=== PATIENT | female | born 1985 | race Caucasian/White ===

== ENCOUNTER 2017-10-27 17:58 | Emergency (ER) | payer MEDICARE, MEDICAID ==
[~2017-10-27] VITALS: Ht 142.2 cm; Wt 90.0 kg
[2017-10-27] MEDS ORDERED: FLUO40CA2 PO (18:30)
[2017-10-27] MEDS ORDERED: LEVO50TA5 PO (18:30)
[2017-10-27] MEDS ORDERED: PLEASE ENTER HEIGHT AND WEIGHT MC SCH (18:30)
[2017-10-27] MEDS ORDERED: LIDOCAINE 1%, 20ML INFIL ONE (18:30)
[2017-10-27] MEDS ORDERED: SODIUM CHLORIDE FLUSH 10ML SYR IVF ONE (18:30)
[2017-10-27] MEDS ORDERED: DIVA-68 PO (18:31)
[2017-10-27] MEDS ORDERED: BUPR150T20 PO (18:31)
[2017-10-27] MEDS ORDERED: TOPI200T6 PO (18:32)
[2017-10-27] MEDS ORDERED: ACET500T63 PO (18:32)
[2017-10-27 18:45] LABS: BASOPHILS # (AUTO) 0.04 x10^3/uL (0-0.1); BASOPHILS % (AUTO) 1 % (0-1); EOSINOPHILS # (AUTO) 0.05 x10^3/uL (0-0.4); EOSINOPHILS % (AUTO) 1 % (1-7); LYMPHOCYTES # (AUTO) 2.49 x10^3/uL (1-3.4); LYMPHOCYTES % (AUTO) 42 % (22-44); MD NO; MEAN CORPUSCULAR HEMOGLOBIN 33.7 pg (27.0-34.8); MEAN CORPUSCULAR HGB CONC 33.1 g/dL (32.4-35.8); MEAN PLATELET VOLUME 7.4 fL (7.4-10.4); MONOCYTES # (AUTO) 0.45 x10^3/uL (0.2-0.8); MONOCYTES % (AUTO) 8 % (2-9); NEUTROPHILS # (AUTO) 2.93 x10^3/uL (1.8-6.8); NEUTROPHILS % (AUTO) 49 % (42-75); PLATELET COUNT 372 x10^3/uL (130-400); RED BLOOD COUNT 3.85 x10^6/uL (3.82-5.3); RED CELL DISTRIBUTION WIDTH 18.5 % (9.6-15.2)
[2017-10-27 18:59] LABS: ALBUMIN 2.8 g/dL (3.4-5.0); ANION GAP 5 mmol/L (5-15); CALCIUM 8.5 mg/dL (8.5-10.1); CHLORIDE 108 mmol/L (98-107); CREATININE 0.95 mg/dL (0.55-1.02)
[2017-10-27] MEDS ORDERED: LIDOCAINE 1%, 10ML ONE (19:34)
[2017-10-27 22:05] VITALS: BP 114/67
== END 2017-10-27 22:07 | disposition home or self-care (01) ==
LOC: ED 18:49
DX: S06.0X0A Concussion without loss of consciousness, initial encounter (principal); S02.81XA Fracture of other specified skull and facial bones, right side, initial encounter for closed fracture; S02.2XXA Fracture of nasal bones, initial encounter for closed fracture; S01.511A Laceration without foreign body of lip, initial encounter; R56.9 Unspecified convulsions; E03.9 Hypothyroidism, unspecified; W10.9XXA Fall (on) (from) unspecified stairs and steps, initial encounter; Y93.89 Activity, other specified; Y92.098 Other place in other non-institutional residence as the place of occurrence of the external cause; Y99.8 Other external cause status
CPT/HCPCS: 13132; 36415; 70450; 70486; 72072; 72110; 72125; 80048; 82040; 84703; 85025; 99285

== ENCOUNTER 2018-04-20 18:49 | Emergency (ER) | payer MEDICARE, MEDICAID ==
[~2018-04-20] VITALS: Ht 147.3 cm; Wt 126.7 kg
[~2018-04-20 18:49] MED LIST: ACET500T63 PO; BUPR150T20 PO; DIVA-68 PO; FLUO40CA2 PO; LEVO50TA5 PO; TOPI200T6 PO
[2018-04-20 18:51] VITALS: BP 125/87
== END 2018-04-20 19:59 | disposition home or self-care (01) ==
LOC: ED 19:00
DX: S20.219A Contusion of unspecified front wall of thorax, initial encounter (principal); E03.9 Hypothyroidism, unspecified; Z79.899 Other long term (current) drug therapy; X58.XXXA Exposure to other specified factors, initial encounter; Y93.89 Activity, other specified; Y99.8 Other external cause status; Y92.89 Other specified places as the place of occurrence of the external cause
CPT/HCPCS: 71046; 99284

== ENCOUNTER 2018-10-30 13:54 | Inpatient (IN) | payer MEDICARE, MEDICAID ==
[~2018-10-30] VITALS: Ht 152.4 cm; Wt 131.6 kg
[~2018-10-30 13:54] MED LIST changes: +DIVA-61 PO; -DIVA-68 PO
[2018-10-30 15:21] LABS: BASOPHILS # (AUTO) 0.08 x10^3/uL (0-0.1); BASOPHILS % (AUTO) 1 % (0-1); EOSINOPHILS # (AUTO) 0.07 x10^3/uL (0-0.4); EOSINOPHILS % (AUTO) 1 % (1-7); LYMPHOCYTES % (AUTO) 26 % (22-44); MD NO; MEAN CORPUSCULAR HEMOGLOBIN 33.4 pg (27.0-34.8); MEAN CORPUSCULAR HGB CONC 32.7 g/dL (32.4-35.8); MEAN CORPUSCULAR VOLUME 101.9 fL (80-100); MEAN PLATELET VOLUME 7.7 fL (7.4-10.4); MONOCYTES # (AUTO) 0.59 x10^3/uL (0.2-0.8); MONOCYTES % (AUTO) 10 % (2-9); NEUTROPHILS # (AUTO) 3.57 x10^3/uL (1.8-6.8); NEUTROPHILS % (AUTO) 62 % (42-75); PLATELET COUNT 299 x10^3/uL (130-400); RED CELL DISTRIBUTION WIDTH 18.7 % (9.6-15.2)
[2018-10-30 15:28] LABS: ALBUMIN 2.7 g/dL (3.4-5.0); ANION GAP 8 mmol/L (5-15); CALCIUM 8.1 mg/dL (8.5-10.1); CHLORIDE 100 mmol/L (98-107)
[2018-10-30 15:31] LABS: ALANINE AMINOTRANSFERASE 17 U/L (12-78); ALKALINE PHOSPHATASE 57 U/L (45-117); BILIRUBIN,TOTAL 0.6 mg/dL (0.2-1.0); CREATININE 0.96 mg/dL (0.55-1.02); TOTAL PROTEIN 7.5 g/dL (6.4-8.2)
--- NOTE | 2018-10-30 15:39 | NUR ---
TO ROOM FROM LOBBY. NAD.
--- NOTE | 2018-10-30 16:06 | NUR ---
UA sent to marcella,. VICTOR MANUEL Valiente at bedside.
[2018-10-30 16:21] LABS: MICROSCOPIC AUTO
[2018-10-30 16:29] LABS: CULTURE INDICATED? YES
[2018-10-30] MEDS ORDERED: AZITHROMYCIN 500 MG in SODIUM CHLORIDE 0.9% 250 ML IV SCH (16:30)
[2018-10-30] MEDS ORDERED: SODIUM CHLORIDE FLUSH 10ML SYR IVF ONE (16:30)
[2018-10-30] MEDS ORDERED: CEFTRIAXONE PMX 1GM/50ML 50 ML IVPB ONE (16:30)
[2018-10-30 16:33] LABS: TROPONIN I < 0.015 ng/mL (0.000-0.045)
[2018-10-30] MEDS ORDERED: CEFTRIAXONE PMX 1GM/50ML 50 ML ONE (16:43)
--- NOTE | 2018-10-30 17:12 | NUR ---
Zithromax rashid. VSS. No other needs.
--- NOTE | 2018-10-30 17:23 | NUR ---
Report to FLOYD Vargas.
[2018-10-30] MEDS ORDERED: ONDANSETRON ODT 4 MG PO PRN (17:30)
[2018-10-30] MEDS ORDERED: GUAIFENESIN/DM 200-20MG, 10ML UDC PO PRN (17:30)
[2018-10-30] MEDS ORDERED: ACETAMINOPHEN 325 MG TABLET PO PRN (17:30)
[2018-10-30] MEDS ORDERED: ONDANSETRON 2MG/ML, 2ML IVPush PRN (17:30)
[2018-10-30 18:08] VITALS: BP 112/76
[2018-10-30 20:00] VITALS: BP 126/67
[2018-10-30] MEDS: TOPIRAMATE 100 MG TABLET PO SCH (20:03)
[2018-10-30] MEDS: BUPROPION SR 150 MG TABLET PO SCH (20:03)
[2018-10-30] MEDS: ENOXAPARIN 40 MG/0.4 ML SQ SCH (20:03)
[2018-10-30] MEDS: DIVALPROEX 500 MG TABLET.DR PO SCH (20:03)
[2018-10-30] MEDS: RISPERIDONE 1 MG TABLET PO SCH (20:04)
[2018-10-30] MEDS ORDERED: TEMAZEPAM 15 MG CAPSULE PO PRN (21:00)
[2018-10-31 02:00] VITALS: BP 101/68
[2018-10-31 05:03] LABS: BASOPHILS # (AUTO) 0.07 x10^3/uL (0-0.1); BASOPHILS % (AUTO) 1 % (0-1); EOSINOPHILS # (AUTO) 0.08 x10^3/uL (0-0.4); EOSINOPHILS % (AUTO) 2 % (1-7); LYMPHOCYTES # (AUTO) 1.53 x10^3/uL (1-3.4); LYMPHOCYTES % (AUTO) 29 % (22-44); MD NO; MEAN CORPUSCULAR HEMOGLOBIN 34.6 pg (27.0-34.8); MEAN CORPUSCULAR VOLUME 101.7 fL (80-100); MEAN PLATELET VOLUME 7.3 fL (7.4-10.4); MONOCYTES # (AUTO) 0.81 x10^3/uL (0.2-0.8); MONOCYTES % (AUTO) 15 % (2-9); NEUTROPHILS # (AUTO) 2.87 x10^3/uL (1.8-6.8); NEUTROPHILS % (AUTO) 54 % (42-75); PLATELET COUNT 268 x10^3/uL (130-400); RED BLOOD COUNT 3.74 x10^6/uL (3.82-5.3)
[2018-10-31 05:17] LABS: ALBUMIN 2.6 g/dL (3.4-5.0); ANION GAP 5 mmol/L (5-15); CALCIUM 8.5 mg/dL (8.5-10.1); CHLORIDE 104 mmol/L (98-107)
[2018-10-31 05:21] LABS: ALANINE AMINOTRANSFERASE 15 U/L (12-78); ALKALINE PHOSPHATASE 62 U/L (45-117); BILIRUBIN,TOTAL 0.2 mg/dL (0.2-1.0); CREATININE 0.97 mg/dL (0.55-1.02); TOTAL PROTEIN 7.4 g/dL (6.4-8.2)
[2018-10-31] MEDS: LEVOTHYROXINE 50 MCG TABLET PO SCH (05:35)
[2018-10-31 07:15] VITALS: BP 122/76
[2018-10-31] MEDS: TOPIRAMATE 100 MG TABLET PO SCH ×2 (08:49→20:37)
[2018-10-31] MEDS: FLUOXETINE HCL 20 MG CAPSULE PO SCH (08:49)
[2018-10-31] MEDS: DIVALPROEX 500 MG TABLET.DR PO SCH ×2 (08:49→20:37)
[2018-10-31] MEDS: BUPROPION SR 150 MG TABLET PO SCH ×2 (08:50→20:37)
[2018-10-31] MEDS: AZITHROMYCIN 500 MG TABLET PO SCH (08:50)
[2018-10-31 12:08] VITALS: BP 98/55
[2018-10-31] MEDS: CEFTRIAXONE PMX 2GM/50ML 50 ML IV SCH (17:26)
[2018-10-31 20:00] VITALS: BP 135/66
[2018-10-31] MEDS: ENOXAPARIN 40 MG/0.4 ML SQ SCH (20:37)
[2018-10-31] MEDS: RISPERIDONE 1 MG TABLET PO SCH (20:37)
[2018-10-31 20:40] VITALS: BP 126/84
[2018-11-01 01:49] VITALS: BP 126/82
[2018-11-01] MEDS: LEVOTHYROXINE 50 MCG TABLET PO SCH (05:35)
[2018-11-01 06:36] VITALS: BP 101/60
[2018-11-01] MEDS: AZITHROMYCIN 500 MG TABLET PO SCH (08:43)
[2018-11-01] MEDS: FLUOXETINE HCL 20 MG CAPSULE PO SCH (08:43)
[2018-11-01] MEDS: BUPROPION SR 150 MG TABLET PO SCH ×2 (08:43→20:06)
[2018-11-01] MEDS: DIVALPROEX 500 MG TABLET.DR PO SCH ×2 (08:43→20:07)
[2018-11-01] MEDS: TOPIRAMATE 100 MG TABLET PO SCH ×2 (08:43→20:06)
[2018-11-01 12:43] VITALS: BP 110/73
[2018-11-01] MEDS ORDERED: OMNIPAQUE 350 MG/ML, 100ML BOTTLE ONE (18:01)
[2018-11-01] MEDS: CEFTRIAXONE PMX 2GM/50ML 50 ML IV SCH (18:05)
[2018-11-01 20:00] VITALS: BP 101/68
[2018-11-01] MEDS: RISPERIDONE 1 MG TABLET PO SCH (20:06)
[2018-11-01] MEDS: ENOXAPARIN 40 MG/0.4 ML SQ SCH (20:07)
[2018-11-02 02:00] VITALS: BP 105/69
[2018-11-02 05:38] LABS: BASOPHILS % (AUTO) 2 % (0-1); EOSINOPHILS # (AUTO) 0.18 x10^3/uL (0-0.4); EOSINOPHILS % (AUTO) 4 % (1-7); LYMPHOCYTES # (AUTO) 2.01 x10^3/uL (1-3.4); LYMPHOCYTES % (AUTO) 38 % (22-44); MD NO; MEAN CORPUSCULAR HEMOGLOBIN 34.6 pg (27.0-34.8); MEAN CORPUSCULAR HGB CONC 33.8 g/dL (32.4-35.8); MEAN CORPUSCULAR VOLUME 102.1 fL (80-100); MEAN PLATELET VOLUME 7.3 fL (7.4-10.4); MONOCYTES # (AUTO) 0.67 x10^3/uL (0.2-0.8); MONOCYTES % (AUTO) 13 % (2-9); NEUTROPHILS # (AUTO) 2.34 x10^3/uL (1.8-6.8); NEUTROPHILS % (AUTO) 44 % (42-75); PLATELET COUNT 281 x10^3/uL (130-400); RED BLOOD COUNT 3.56 x10^6/uL (3.82-5.3); RED CELL DISTRIBUTION WIDTH 17.9 % (9.6-15.2)
[2018-11-02 05:50] LABS: ALBUMIN 2.2 g/dL (3.4-5.0); ANION GAP 5 mmol/L (5-15); CALCIUM 8.2 mg/dL (8.5-10.1); CHLORIDE 109 mmol/L (98-107)
[2018-11-02] MEDS: LEVOTHYROXINE 50 MCG TABLET PO SCH (06:12)
[2018-11-02 06:19] LABS: ALANINE AMINOTRANSFERASE 12 U/L (12-78); ALKALINE PHOSPHATASE 54 U/L (45-117); BILIRUBIN,TOTAL 0.2 mg/dL (0.2-1.0); CREATININE 0.98 mg/dL (0.55-1.02); TOTAL PROTEIN 6.8 g/dL (6.4-8.2)
[2018-11-02 07:19] VITALS: BP 103/66
[2018-11-02] MEDS: AZITHROMYCIN 500 MG TABLET PO SCH (08:56)
[2018-11-02] MEDS: BUPROPION SR 150 MG TABLET PO SCH ×2 (08:56→21:22)
[2018-11-02] MEDS: TOPIRAMATE 100 MG TABLET PO SCH ×2 (08:56→21:22)
[2018-11-02] MEDS: FLUOXETINE HCL 20 MG CAPSULE PO SCH (08:56)
[2018-11-02] MEDS: DIVALPROEX 500 MG TABLET.DR PO SCH ×2 (08:56→21:23)
[2018-11-02 12:52] VITALS: BP 106/63
[2018-11-02] MEDS: CEFTRIAXONE PMX 2GM/50ML 50 ML IV SCH (17:41)
[2018-11-02 19:59] VITALS: BP 101/67
[2018-11-02] MEDS: RISPERIDONE 1 MG TABLET PO SCH (21:23)
[2018-11-02] MEDS: ENOXAPARIN 40 MG/0.4 ML SQ SCH (21:30)
[2018-11-03 01:06] VITALS: BP 103/70
[2018-11-03] MEDS: LEVOTHYROXINE 50 MCG TABLET PO SCH (05:21)
[2018-11-03 06:05] LABS: ALBUMIN 2.5 g/dL (3.4-5.0); ANION GAP 4 mmol/L (5-15); CALCIUM 8.7 mg/dL (8.5-10.1); CHLORIDE 107 mmol/L (98-107); CREATININE 0.79 mg/dL (0.55-1.02)
[2018-11-03 07:32] VITALS: BP 120/74
[2018-11-03] MEDS: AZITHROMYCIN 500 MG TABLET PO SCH (09:31)
[2018-11-03] MEDS: FLUOXETINE HCL 20 MG CAPSULE PO SCH (09:31)
[2018-11-03] MEDS: BUPROPION SR 150 MG TABLET PO SCH ×2 (09:32→20:24)
[2018-11-03] MEDS: DIVALPROEX 500 MG TABLET.DR PO SCH ×2 (09:32→20:23)
[2018-11-03] MEDS: TOPIRAMATE 100 MG TABLET PO SCH ×2 (09:32→20:23)
[2018-11-03 12:43] VITALS: BP 108/71
[2018-11-03] MEDS: CEFTRIAXONE PMX 2GM/50ML 50 ML IV SCH (18:08)
[2018-11-03 19:39] VITALS: BP 137/76
[2018-11-03] MEDS: ENOXAPARIN 40 MG/0.4 ML SQ SCH (20:23)
[2018-11-03] MEDS: RISPERIDONE 1 MG TABLET PO SCH (20:23)
[2018-11-04 01:38] VITALS: BP 110/72
[2018-11-04] MEDS: LEVOTHYROXINE 50 MCG TABLET PO SCH (06:23)
[2018-11-04 07:29] VITALS: BP 105/67
[2018-11-04] MEDS: AZITHROMYCIN 500 MG TABLET PO SCH (09:41)
[2018-11-04] MEDS: TOPIRAMATE 100 MG TABLET PO SCH ×2 (09:41→20:19)
[2018-11-04] MEDS: DIVALPROEX 500 MG TABLET.DR PO SCH ×2 (09:42→20:19)
[2018-11-04] MEDS: BUPROPION SR 150 MG TABLET PO SCH ×2 (09:42→20:19)
[2018-11-04] MEDS: FLUOXETINE HCL 20 MG CAPSULE PO SCH (09:42)
[2018-11-04] MEDS ORDERED: AZIT500T5 PO (11:20)
[2018-11-04] MEDS ORDERED: CEFD300C37 PO (11:20)
[2018-11-04 13:34] VITALS: BP 123/75
[2018-11-04] MEDS: CEFTRIAXONE PMX 2GM/50ML 50 ML IV SCH (17:47)
[2018-11-04] MEDS: RISPERIDONE 1 MG TABLET PO SCH (20:20)
== END 2018-11-04 20:50 | disposition home or self-care (01) | DRG 177 ==
LOC: ED 16:19 → EDIP 17:14 → 3NE 17:50
PROVIDERS: ADMIT Hospitalist; ATTEND Hospitalist
DX: J15.6 Pneumonia due to other Gram-negative bacteria (principal); J96.01 Acute respiratory failure with hypoxia; E87.1 Hypo-osmolality and hyponatremia; Z68.43 Body mass index [BMI] 50.0-59.9, adult; J18.9 Pneumonia, unspecified organism; E66.9 Obesity, unspecified; D75.89 Other specified diseases of blood and blood-forming organs; E03.9 Hypothyroidism, unspecified; G40.909 Epilepsy, unspecified, not intractable, without status epilepticus; Q90.9 Down syndrome, unspecified
CPT/HCPCS: 36415; 71046; 71275; 80048; 80053; 81001; 82040; 82607; 83690; 84443; 84484; 85025; 87040; 87086; 96365; 96367; G0378; J0456; J0696; J1650; Q9967; J7050

== ENCOUNTER 2019-03-02 09:59 | Emergency (ER) | payer MEDICARE, MEDICAID ==
[~2019-03-02] VITALS: Ht 157.5 cm; Wt 121.3 kg
[~2019-03-02 09:59] MED LIST changes: +AZIT500T5 PO; +CEFD300C37 PO
--- NOTE | 2019-03-02 10:17 | NUR ---
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 PER STAFF THIS IS THE THIRD SZ THIS WEEK. PT IS SCHEDULED FOR AN APPT WITH HER NEUROLOGIST. PER STAFF PT WAS "LESS PERKY THAN NORMAL". PT ANSWERING ALL QUESTIONS APPROPRIATELY AND FOLLOWING COMMANDS AT THIS TIME. PERRLA. PT ABLE TO KAMARA W/O DIFFICULTY. NO ORAL TRAUMA OR INCONTINENCE NOTED. PT ON CONT BP AND O2 MONITORS. CALL LIGHT WITHIN REACH. WILL CONT TO MONITOR PT. STAFF AT BEDSIDE. CALL LIGHT WITHIN REACH. WILL CONT TO MONITOR PT.
[2019-03-02 10:33] LABS: ALBUMIN 2.7 g/dL (3.4-5.0); ANION GAP 5 mmol/L (5-15); CALCIUM 8.3 mg/dL (8.5-10.1); CHLORIDE 111 mmol/L (98-107); CREATININE 0.93 mg/dL (0.55-1.02)
[2019-03-02] MEDS ORDERED: MELA10TA PO (10:33)
[2019-03-02] MEDS ORDERED: RISP1TAB3 PO (10:33)
[2019-03-02] MEDS ORDERED: IBUP-1623 PO (10:33)
[2019-03-02 11:13] LABS: BASOPHILS # (AUTO) 0.03 x10^3/uL (0-0.1); BASOPHILS % (AUTO) 1 % (0-1); EOSINOPHILS # (AUTO) 0.02 x10^3/uL (0-0.4); EOSINOPHILS % (AUTO) 1 % (1-7); LYMPHOCYTES % (AUTO) 33 % (22-44); MD MORPH REVIEW ONLY; MEAN CORPUSCULAR HEMOGLOBIN 35.3 pg (27.0-34.8); MEAN CORPUSCULAR HGB CONC 33.8 g/dL (32.4-35.8); MEAN CORPUSCULAR VOLUME 104.5 fL (80-100); MEAN PLATELET VOLUME 7.8 fL (7.4-10.4); MONOCYTES # (AUTO) 0.33 x10^3/uL (0.2-0.8); MONOCYTES % (AUTO) 9 % (2-9); NEUTROPHILS # (AUTO) 2.24 x10^3/uL (1.8-6.8); NEUTROPHILS % (AUTO) 57 % (42-75); PLATELET COUNT 270 x10^3/uL (130-400); RED BLOOD COUNT 3.71 x10^6/uL (3.82-5.3); RED CELL DISTRIBUTION WIDTH 17.7 % (9.6-15.2)
[2019-03-02 11:14] LABS: ANISOCYTOSIS 1+
[2019-03-02 11:15] LABS: <PLATELET ESTIMATE> ADEQUATE; <PLT MORPHOLOGY> NORMAL PLT MORPH
--- NOTE | 2019-03-02 11:15 | NUR ---
PT CURRENTLY RESTING ON GURNEY. NAD NOTED. SKIN PWD. RESP EVEN AND UNLABORED. FAMILY AND CAREGIVERS AT BEDSIDE. PT ON CONT BP AND O2 MONITORS. CALL LIGHT WITHIN REACH.
--- NOTE | 2019-03-02 11:45 | NUR ---
VICTOR MANUEL ZUNIGA AT BEDSIDE FOR RECHECK/EXPLANATION OF POC. FAMILY AND CAREGIVERS VERBALIZE UNDERSTANDING.
[2019-03-02 12:00] VITALS: BP 121/58
== END 2019-03-02 12:02 | disposition home or self-care (01) ==
LOC: ED 11:43
DX: R56.9 Unspecified convulsions (principal); E03.9 Hypothyroidism, unspecified
CPT/HCPCS: 36415; 80048; 80164; 82040; 85025; 93005; 99284

== ENCOUNTER 2019-12-20 20:44 | Emergency (ER) | payer MEDICARE, MEDICAID ==
[~2019-12-20] VITALS: Ht 162.6 cm; Wt 125.0 kg
[~2019-12-20 20:44] MED LIST changes: +AZIT500T10 PO; -AZIT500T5 PO; -BUPR150T20 PO; +BUPR150T28 PO; +IBUP-1623 PO; +MELA10TA PO; +RISP1TAB3 PO
[2019-12-20] MEDS ORDERED: SODIUM CHLORIDE FLUSH 10ML SYR IVF ONE (21:00)
[2019-12-20 21:07] LABS: BASOPHILS # (AUTO) 0.05 x10^3/uL (0-0.1); BASOPHILS % (AUTO) 1 % (0-1); EOSINOPHILS # (AUTO) 0.02 x10^3/uL (0-0.4); EOSINOPHILS % (AUTO) 0 % (1-7); LYMPHOCYTES # (AUTO) 2.64 x10^3/uL (1-3.4); LYMPHOCYTES % (AUTO) 53 % (22-44); MD NO; MEAN CORPUSCULAR HGB CONC 33.3 g/dL (32.4-35.8); MEAN PLATELET VOLUME 7.8 fL (7.4-10.4); MONOCYTES # (AUTO) 0.46 x10^3/uL (0.2-0.8); MONOCYTES % (AUTO) 9 % (2-9); NEUTROPHILS % (AUTO) 36 % (42-75); PLATELET COUNT 311 x10^3/uL (130-400); RED CELL DISTRIBUTION WIDTH 17.9 % (9.6-15.2)
--- NOTE | 2019-12-20 21:11 | NUR ---
BIB BY SUKHWINDER FROM [facility] FOR WITNESSED ABSENCE SIEZURE (HX OF SAME). HAS BEEN COMPLIANT WITH EPILEPSY MEDICATIONS. FSBS 99 ON ARRIVAL AT BASELINE NEUROLOGICALLY URINARY INCONTINENT PIV PLACED BY SUKHWINDER
[2019-12-20 21:19] LABS: ALANINE AMINOTRANSFERASE 17 U/L (12-78); ALBUMIN 2.7 g/dL (3.4-5.0); ANION GAP 6 mmol/L (5-15); CALCIUM 8.3 mg/dL (8.5-10.1); CHLORIDE 106 mmol/L (98-107); CREATININE 0.82 mg/dL (0.55-1.02)
[2019-12-20 21:23] LABS: ALKALINE PHOSPHATASE 79 U/L (45-117); BILIRUBIN,TOTAL 0.1 mg/dL (0.2-1.0); TOTAL PROTEIN 7.1 g/dL (6.4-8.2)
[2019-12-20 21:32] LABS: MICROSCOPIC NOT IND
[2019-12-20 21:42] LABS: CULTURE INDICATED? NO
--- NOTE | 2019-12-20 22:02 | NUR ---
REPORT RECEIVED FROM FLOYD MARTINS. ASSUMED CARE OF PT
[2019-12-20 22:26] VITALS: BP 104/57
--- NOTE | 2019-12-20 22:27 | NUR ---
Patient/Caregiver given discharge instructions and they have confirmed that they understand the instructions. Patient ambulatory with steady gait. PT DISCHARGED WITH SHELTER STAFF
== END 2019-12-20 22:29 | disposition home or self-care (01) ==
LOC: ED 21:37
DX: G40.309 Generalized idiopathic epilepsy and epileptic syndromes, not intractable, without status epilepticus (principal); R94.31 Abnormal electrocardiogram [ECG] [EKG]
CPT/HCPCS: 36415; 80053; 80164; 81003; 84703; 85025; 93005; 99284